=== PATIENT | male | born 1995 | race African-American/Black ===

== ENCOUNTER 2019-09-04 23:04 | Emergency (ER) | payer SELFPAY ==
[~2019-09-04] VITALS: Ht 185.4 cm; Wt 80.9 kg
[2019-09-04 23:09] VITALS: BP 138/75; TEMP 98.6
[2019-09-04] MEDS ORDERED: BUSPAR DIVIDOSE15 MG PO (23:11)
[2019-09-04] MEDS ORDERED: ZYRTEC 10MG10 MG PO (23:11)
[2019-09-04] MEDS ORDERED: AMOXICILLIN 8751 TAB PO (23:33)
[2019-09-05 00:11] VITALS: PULSE 68
== END 2019-09-05 00:11 | disposition home or self-care (01) ==
LOC: COL.ER 23:04
DX: S01.511A Laceration without foreign body of lip, initial encounter (principal); W54.0XXA Bitten by dog, initial encounter; Y92.009 Unspecified place in unspecified non-institutional (private) residence as the place of occurrence of the external cause